=== PATIENT | female | born 1940 | race Caucasian/White ===

== ENCOUNTER 2019-03-13 01:00 | Inpatient (IN) | payer MEDICARE, MEDICAID ==
[~2019-03-13] VITALS: Ht 175.3 cm; Wt 67.8 kg
[2019-03-13] VITALS (7 sets, daily range): BP systolic 97–116; BP diastolic 49–63
[~2019-03-13 01:00] MED LIST: COLACE50 MG ORAL; PERCOCET 5-3251 EACH ORAL; TRAMADOL HCL50 MG ORAL; VALIUM2 MG ORAL
--- NOTE | 2019-03-13 01:03 | NUR ---
ED Nurse Note: pt presents to ED via EMS arrival RA 861 c/o L knee pain after she sustained a GLF at 1430. pt reports that she hit her head and has a bruise on her R cheek but denies LOC. per EMS she took an oxycodone DIRECTOR OF REIMBURSEMENT without relief of symptoms. pt rates the pain a 10/10 that radiatesup her L thigh and down the R lwoer leg. pt denies vomiting but does c/o nausea.
[2019-03-13] MEDS ORDERED: Tetanus/Diptheria/Pertussis IM ONE (01:15)
[2019-03-13] MEDS ORDERED: Morphine Sulfate 2mg/ml Inj(IV/IM USE ONLY) IM ONE (01:15)
--- NOTE | 2019-03-13 01:18 | Emergency Room Report ---
History of Present Illness General Chief Complaint: Multiple Trauma/Fall Source: Patient Present Illness HPI Disclaimer: Please note that this report is being documented using DRAGON technology. This can lead to erroneous entry secondary to incorrect interpretation by the dictating instrument. HPI: 79-year-old female with a history of temporal arteritis and osteoarthritis presents for evaluation of left knee pain and swelling. The patient had a fall from standing today approximately 2:30 PM. She fell forward onto her right knee and struck the right cheek against the ground as well. There was no loss of consciousness, no seizure-like activity and she does not take anticoagulants. She was helped home by juan carlos Butt'edwin. Noted worsening pain and swelling in the left knee. She was taking [place] which she has for chronic back pain without significant improvement. She is unable to ambulate. Typically gets around with a walker. Has a history of left hip replacement but no history of surgical repair in the left knee. She did dislocate the left kneecap while in boarding school. PMH: Osteoarthritis, temporal arteritis PSH: Left hip replacement, appendectomy Allergies: Denies Social Hx: Occasional alcohol use, occasional CBD use, denies other drug use or tobacco use Allergies: Coded Allergies: No Known Allergies (Unverified , 06/03/13) Patient History Last Menstrual Period: n/a Nursing Documentation-PM Past Medical History: No History, Except For Review of Systems All Other Systems: negative except mentioned in HPI Physical Exam Vital Signs Date Time Temp Pulse Resp B/P (MAP) Pulse Ox O2 Delivery O2 Flow Rate FiO2 03/13/19 00:57 97.9 70 18 99/56 (70) 98 Room Air General: Awake and alert, no acute distress HEENT: Normocephalic, atraumatic. Small hematoma of the right maxilla. No infraorbital anesthesia. EOMI. PERRLA. No septal hematoma. No oral lacerations. Dentition is intact. No malocclusion Neck: Supple, trachea midline. Arrives without cervical collar Chest Wall: No tenderness, no deformity, no crepitus CV: RRR. S1 and S2 normal. No murmur appreciated Resp: Normal work of breathing. No cough, wheezing or crackles appreciated Abd: Soft, nontender, nondistended Skin: Intact. No abrasions, laceration or rash over the exposed skin MSK: Significant hematoma and edema around the left knee that is tender to palpation. Patella appears in anatomic position. Severe pain with passive and active flexion and extension of the left knee. No overlying skin breakdown. Right knee is anatomic, nontender. Neuro: Awake and alert. Mentating appropriately. Sensation is intact to light touch over the dermatomes of the upper and lower extremities. Distal pulses are 2+. Capillary refill less than 2 seconds. Extremities are warm. Spine: There is no tenderness, step-off or deformity in the cervical, thoracic or lumbosacral spine. Medical Decision Making Diagnostic Impression: Primary Impression: Patellar fracture Additional Impression: Falls ER Course This is a 79-year-old female who presents after a fall from standing earlier today complaining of worsening pain and swelling of the left knee as well as a small hematoma over the right maxilla. There is no loss of consciousness however the patient does have tenderness over the facial bones concerning for possible fracture. Will obtain a CT scan of the head and facial bones as well as x-ray of the left knee to rule out fracture dislocation. She has preserved distal pulses and good capillary refill there is a significant effusion. She will be given pain medication. Laboratory Tests Test 03/13/19 02:14 White Blood Count 7.9 K/UL (4.8-10.8) Red Blood Count 3.66 M/UL (4.20-5.40) L Hemoglobin 11.5 G/DL (12.0-16.0) L Hematocrit 33.2 % (37.0-47.0) L Mean Corpuscular Volume 91 FL (80-99) Mean Corpuscular Hemoglobin 31.4 PG (27.0-31.0) H Mean Corpuscular Hemoglobin Concent 34.7 G/DL (32.0-36.0) Red Cell Distribution Width 11.5 % (11.6-14.8) L Platelet Count 201 K/UL (150-450) Mean Platelet Volume 5.3 FL (6.5-10.1) L Neutrophils (%) (Auto) 77.0 % (45.0-75.0) H Lymphocytes (%) (Auto) 10.9 % (20.0-45.0) L Monocytes (%) (Auto) 9.5 % (1.0-10.0) Eosinophils (%) (Auto) 1.7 % (0.0-3.0) Basophils (%) (Auto) 0.8 % (0.0-2.0) Sodium Level 135 MMOL/L (136-145) L Potassium Level 3.9 MMOL/L (3.5-5.1) Chloride Level 102 MMOL/L (98-107) Carbon Dioxide Level 29 MMOL/L (21-32) Anion Gap 4 mmol/L (5-15) L Blood Urea Nitrogen 9 mg/dL (7-18) Creatinine 0.6 MG/DL (0.55-1.30) Estimate Glomerular Filtration Rate mL/min (>60) Glucose Level 104 MG/DL (74-106) Calcium Level 8.7 MG/DL (8.5-10.1) Other X-Ray Diagnostic Results Other X-Ray Diagnostic Results : X-Ray ordered: Left knee # of Views/Limited Vs Complete: Complete Indication: Swelling EP Interpretation: Yes Interpretation: other - Comminuted fracture of the patella with moderate soft tissue swelling Impression: Other - Acute patellar fracture and soft tissue swelling Electronically Signed by: Electronically signed by Dr. Devonte Valentin Reevaluation Time: 04:00 Last Vital Signs Date Time Temp Pulse Resp B/P (MAP) Pulse Ox O2 Delivery O2 Flow Rate FiO2 03/13/19 01:07 70 18 Room Air 03/13/19 01:07 97.9 99/56 98 Reevaluation Impression X-ray confirms a patellar fracture that is comminuted but not significantly displaced. The patient cannot ambulate and cannot be safely discharged home in an immobilizer because cannot ambulate, she has multiple steps to get up to her home, lives independently and her daughter states that she is concerned over frequent falls. Daughter is concerned that she may be prescribed too much pain medication causing her recurrent falls. Believes there may be a polypharmacy component to her fall today and would like the patient admitted for reevaluation. She believes it is unsafe to send the patient home at this time to which I agree. She will require orthopedic evaluation while in-house. Patient was placed in a knee immobilizer, provided with pain medication. Screening labs have returned largely unremarkable. Will be admitted to panel service on the med/surge floor Disposition: ADMITTED INPATIENT Condition: Serious Devonte Valentin MD Mar 13, 2019 01:18
--- NOTE | 2019-03-13 02:00 | NUR ---
ED Nurse Note: R knee immobolizer applied by cardiac catheterization technologist
[2019-03-13] MEDS ORDERED: Morphine Sulfate 4mg/ml Inj (IV USE ONLY) IVP ONE (02:30)
--- NOTE | 2019-03-13 02:30 | NUR ---
ED Nurse Note: pt's daughter's number: [phone] Nimesh
[2019-03-13 02:32] LABS: BASOPHILS % (AUTO) 0.8 % (0.0-2.0); EOSINOPHILS % (AUTO) 1.7 % (0.0-3.0); HEMATOCRIT 33.2 % (37.0-47.0); HEMOGLOBIN 11.5 G/DL (12.0-16.0); LYMPHOCYTES % (AUTO) 10.9 % (20.0-45.0); MEAN CORPUSCULAR VOLUME 91 FL (80-99); MONOCYTES % (AUTO) 9.5 % (1.0-10.0); PLATELET COUNT 201 K/UL (150-450); RED BLOOD COUNT 3.66 M/UL (4.20-5.40); RED CELL DISTRIBUTION WIDTH 11.5 % (11.6-14.8); WHITE BLOOD COUNT 7.9 K/UL (4.8-10.8)
--- NOTE | 2019-03-13 02:40 | NUR ---
ED Nurse Note: pt transported to CT via gurney in NAD
[2019-03-13 02:41] LABS: ANION GAP 4 mmol/L (5-15); BLOOD UREA NITROGEN 9 mg/dL (7-18); CALCIUM 8.7 MG/DL (8.5-10.1); CARBON DIOXIDE 29 MMOL/L (21-32); CHLORIDE 102 MMOL/L (98-107); CREATININE 0.6 MG/DL (0.55-1.30); POTASSIUM 3.9 MMOL/L (3.5-5.1); SODIUM 135 MMOL/L (136-145)
--- NOTE | 2019-03-13 02:53 | NUR ---
ED Nurse Note: pt has returned from CT, states her pain is improved. will continue to monitor
--- NOTE | 2019-03-13 03:59 | Diagnostic Imaging Report ---
Indications: Bruising on face, status post fall one day ago Technique: Spiral images obtained through the facial bones. No IV contrast utilized. Multiplanar reconstructions were generated.Total dose length product 520 mGycm. CTDIvol(s) 24 mGy. Dose reduction achieved using automated exposure control Comparison: none Findings: There is minimal contusion in the right malar region demonstrated. No underlying fracture demonstrated. No worrisome sinus air-fluid levels. There is a polyp versus mucous retention cyst in the left maxillary sinus floor. There is evidence of prior bilateral cataract surgery. The optic globes are intact otherwise. The retroseptal orbits are intact. The remainder of the facial soft tissues are unremarkable. Impression: Evidence of right malar region contusion No acute bony trauma Left maxillary sinus polyp or mucous retention cyst This agrees with the preliminary interpretation provided overnight by [facility] teleradiology service. The CT scanner at [facility] is accredited by the [employer] and the scans are performed using protocols designed to limit radiation exposure to as low as reasonably achievable to attain images of sufficient resolution adequate for diagnostic evaluation.
[2019-03-13] MEDS ORDERED: HYDROmorphone 1mg/ml Carpuject SUBQ PRN ×2 (04:15→06:30)
[2019-03-13] MEDS ORDERED: Morphine Sulfate 4mg/ml Inj (IV USE ONLY) IVP PRN (04:15)
--- NOTE | 2019-03-13 04:37 | Diagnostic Imaging Report ---
Indications: Fell while walking one day ago, bruising on face Technique: Spiral acquisitions obtained through the brain. Angled axial and coronal 5 x 5 mm slices were reconstructed. Total dose length product 1831 mGycm. CTDI vol(s) 74 mGy. Dose reduction achieved using automated exposure control Comparison: None. Findings: No acute adrenal hemorrhage or edema. No mass effect nor midline shift. There is age-related enlargement of the ventricles and extra axial CSF spaces. There is mild periventricular deep white matter low-attenuation, consistent with chronic microvascular ischemic change. Intact calvarium. Visualized orbits are unremarkable. There is left maxillary sinus polyp versus mucosal thickening. Impression: Negative for acute intracranial bleed or mass effect Sinus disease Chronic and age-related changes, as described This agrees with the preliminary interpretation provided overnight by [facility] teleradiology service. The CT scanner at [facility] is accredited by the [employer] and the scans are performed using protocols designed to limit radiation exposure to as low as reasonably achievable to attain images of sufficient resolution adequate for diagnostic evaluation.
--- NOTE | 2019-03-13 04:45 | NUR ---
TRANSFER TO FLOOR: Patient transferred to as ordered, per JAMES Valentin. Report given to . Belongings sent with pt. daughter's contact information is in pt chart
--- NOTE | 2019-03-13 05:30 | NUR ---
NURSE NOTES: Received patient report from Tanja, emergency room RN. Patient is alert and oriented c/o pain 01/31. She requests IV morph Addendum: 03/13/19 at 0630 by Reyes Benedict RN She requests IV morphine. Her left leg is immobilized. Right hand IV is intact and asymptomatic. No SOB on room air. Walker and bedpan at bedside. Bed in low and locked position, call light within reach. Will continue to monitor.
--- NOTE | 2019-03-13 07:32 | NUR ---
NURSE NOTES: Patient is in bed asleep. Stable. Breathing is even and unlabored. No visible signs of distress noted at this time. Patient is in bed in locked and lowest position with call light within reach. All safety measures provided. Will continue to monitor.
--- NOTE | 2019-03-13 07:57 | NUR ---
NURSE NOTES: Paged Dr. Borrego regarding patient's admission orders. Awaiting response. Patient is stable.
--- NOTE | 2019-03-13 08:19 | NUR ---
HAND-OFF: Report given to REBECCA Ellis. Patient given pain medication per eMAR for left knee pain 01/31. Patient in stable condition and resting in bed.
--- NOTE | 2019-03-13 08:59 | Consultation ---
History of Present Illness General Date patient seen: Mar 13, 2019 Time patient seen: 08:30 - am Chief Complaint: Left knee pain Referring physician: Elmo Reason for Consultation: Pain Management Present Illness HPI This is [id number] female c/o left knee pain and swelling. The patient had a fall from standing today approximately 2:30 PM. She fell forward onto her left knee and struck the ground. Since the has been having severe pain in her left knee with walking as well as c/o right foot swelling and pain. The pain is a 10/. Xray performed found to have patella fracture. States she take Percocet 5/325mg or Ultram at home. We were consulted so patient has adequate pain control while here in the hospital. Allergies: Coded Allergies: No Known Allergies (Unverified , 06/03/13) Medication History Scheduled Docusate Sodium (Colace), 50 MG ORAL TWICE A DAY Scheduled PRN Diazepam* (Valium*), 2 MG ORAL TID PRN for Pain Scale (6-10) Oxycodone/Acetaminophen 5-325* (Percocet 5-325 Mg Tablet*), 1 TAB ORAL Q6H PRN for For Pain Tramadol Hcl* (Ultram*), 50 MG ORAL Q6H PRN for For Pain Patient History Healthcare decision maker Resuscitation status Full Code Advanced Directive on File Patient History Narrative PMH: Osteoarthritis, temporal arteritis PSH: Left hip replacement, appendectomy Social Hx: Occasional alcohol use, occasional CBD use, denies other drug use or tobacco use Review of Systems Constitutional: Reports: weakness Eye: Reports: no symptoms ENT: Reports: no symptoms Respiratory: Reports: no symptoms Cardiovascular: Reports: no symptoms Gastrointestinal: Reports: no symptoms Genitourinary: Reports: no symptoms Musculoskeletal: Reports: joint pain Skin: Reports: no symptoms Psychiatric: Reports: no symptoms Neurological: Reports: no symptoms Endocrine: Reports: no symptoms Hematologic/Lymphatic: Reports: no symptoms Physical Exam General Appearance: no apparent distress, alert Neck: non-tender, supple Respiratory/Chest: lungs clear, normal breath sounds Abdomen: non tender, soft Extremities: other - Left knee swelling tenderness to palaption, Right foot swelling Skin Exam: normal pigmentation Neurologic: alert, oriented x 3 Physical Exam Narrative Procedure: XRAY Knee 3v LT Indication: Pain, trauma, pain in left knee after falling Technique: 3 views of the left knee Comparison: None Findings: There is an obliquely oriented fracture of the patella. This is distracted by about 3 mm but otherwise nondisplaced. There is overlying soft tissue swelling. There is a small effusion. No other acute fractures. No dislocations. There is mild degenerative joint space narrowing of the medial and lateral compartments. There is medial and lateral meniscal chondrocalcinosis. The bones are osteoporotic. Impression: Positive for patellar fracture Last 24 Hour Vital Signs Date Time Temp Pulse Resp B/P (MAP) Pulse Ox O2 Delivery O2 Flow Rate FiO2 03/13/19 08:00 98.0 75 17 102/49 (66) 93 03/13/19 07:56 Room Air 03/13/19 06:00 98.1 71 17 102/52 (69) 93 03/13/19 04:55 97.9 82 16 97/59 99 Room Air 03/13/19 04:18 97.9 16 97/59 99 Room Air 03/13/19 03:00 97.9 03/13/19 03:00 97.9 03/13/19 01:07 70 18 Room Air 03/13/19 01:07 97.9 18 99/56 98 Room Air 03/13/19 00:57 97.9 70 18 99/56 (70) 98 Room Air Laboratory Tests Test 03/13/19 02:14 White Blood Count 7.9 K/UL (4.8-10.8) Red Blood Count 3.66 M/UL (4.20-5.40) L Hemoglobin 11.5 G/DL (12.0-16.0) L Hematocrit 33.2 % (37.0-47.0) L Mean Corpuscular Volume 91 FL (80-99) Mean Corpuscular Hemoglobin 31.4 PG (27.0-31.0) H Mean Corpuscular Hemoglobin Concent 34.7 G/DL (32.0-36.0) Red Cell Distribution Width 11.5 % (11.6-14.8) L Platelet Count 201 K/UL (150-450) Mean Platelet Volume 5.3 FL (6.5-10.1) L Neutrophils (%) (Auto) 77.0 % (45.0-75.0) H Lymphocytes (%) (Auto) 10.9 % (20.0-45.0) L Monocytes (%) (Auto) 9.5 % (1.0-10.0) Eosinophils (%) (Auto) 1.7 % (0.0-3.0) Basophils (%) (Auto) 0.8 % (0.0-2.0) Sodium Level 135 MMOL/L (136-145) L Potassium Level 3.9 MMOL/L (3.5-5.1) Chloride Level 102 MMOL/L (98-107) Carbon Dioxide Level 29 MMOL/L (21-32) Anion Gap 4 mmol/L (5-15) L Blood Urea Nitrogen 9 mg/dL (7-18) Creatinine 0.6 MG/DL (0.55-1.30) Estimat Glomerular Filtration Rate mL/min (>60) Glucose Level 104 MG/DL (74-106) Calcium Level 8.7 MG/DL (8.5-10.1) Height (Feet): 5 Height (Inches): 9.00 Weight (Pounds): 150 Medications Current Medications Medications (Trade) Dose Ordered Sig/Kami Route PRN Reason Start Time Stop Time Status Last Admin Dose Admin Dextrose/Sodium Chloride 1,000 ml @ 50 mls/hr Q20H IV 03/13/19 08:45 04/12/19 08:44 Docusate Sodium (Colace) 100 mg THREE TIMES A DAY ORAL 03/13/19 09:00 04/12/19 08:59 Pantoprazole (Protonix) 40 mg EVERY 12 HOURS ORAL 03/13/19 09:00 04/12/19 08:59 Assessment/Plan Assessment/Plan: (1) Left knee pain (2) Left Patella fracture s/p fall (3) Right foot pain r/o fracture Patient will be started on norco 5/325mg PO 1 tab Q4H PRN severe and Lidoderm patch Q12H on Q12H off on left knee Will order Xray of right foot Recommend Ortho consult as per deli bakery clerk D/w Dr. Ring and he concurred. Caleb Gayle Mar 13, 2019 08:59
[2019-03-13] MEDS: D5NS 1,000 ML IV SCH (09:01)
[2019-03-13] MEDS: Docusate 100mg cap ORAL SCH ×3 (09:01→17:16)
--- NOTE | 2019-03-13 09:56 | Diagnostic Imaging Report ---
Indication: Foot pain Technique: 3 views right foot Comparison: none Findings: Bones are osteoporotic. No definite acute fractures. No dislocations. The joint spaces are preserved. No definite osteolytic lesions. There is pes cavus deformity. There is hammertoe deformity of the second through fifth digits. Impression: No definite acute bony trauma. No definite plain radiographic evidence of osteomyelitis. However, note limited sensitivity of plain radiographs for such
--- NOTE | 2019-03-13 10:43 | NUR ---
RADIOLOGY DEPT., RIGHT FOOT X-RAY COMPLETED.-PKathieDYE
--- NOTE | 2019-03-13 10:48 | NUR ---
NURSE NOTES: Patient to be seen by Dr. Gates. Will assess patient for dvt ppx orders.
--- NOTE | 2019-03-13 11:23 | Consultation ---
Consult Note Consult Note asked to eval for electrolyte imbalance / Anemia HPI: 79-year-old female with a history of temporal arteritis and osteoarthritis presents for evaluation of left knee pain and swelling. The patient had a fall from standing today approximately 2:30 PM. She fell forward onto her right knee and struck the right cheek against the ground as well. There was no loss of consciousness, no seizure-like activity and she does not take anticoagulants. She was helped home by juan carlos Butt's. Noted worsening pain and swelling in the left knee. She was taking [place] which she has for chronic back pain without significant improvement. She is unable to ambulate. Typically gets around with a walker. Has a history of left hip replacement but no history of surgical repair in the left knee. She did dislocate the left kneecap while in boarding school. PMH: Osteoarthritis, temporal arteritis PSH: Left hip replacement, appendectomy Allergies: Denies Social Hx: Occasional alcohol use, occasional CBD use, denies other drug use or tobacco use No Known Allergies (Unverified , 06/03/13) Assessment/Plan HypoKalemia HypoNatremia Fall Fx patella CBD and ETOH use Temporal arteritis Hydrate Ortho eval Urine studies ESR Anemia bar per orders Anthony Rivera MD Mar 13, 2019 11:23
--- NOTE | 2019-03-13 12:15 | NUR ---
NURSE NOTES: Attempted to insert F/C, unsuccessful. Strict sterile technique observed. Patient refused another attempt of insertion. Patient assisted onto bedside commode without incident. All safety measures provided.
--- NOTE | 2019-03-13 12:30 | NUR ---
NURSE NOTES: Patient was able to void into bedside commode. Urine is shelbi. Patient complained of some discomfort r/t previous slade insertion attempt. Patient assisted back into bed with 2 person assist without incident. Patient is in bed in locked and lowest position with call light within reach. Will continue to monitor.
[2019-03-13 12:54] LABS: APPEARANCE,URINE SLIGHTLY CLOUDY; BILIRUBIN, URINE NEGATIVE (NEGATIVE); GLUCOSE, URINE (UA) NEGATIVE (NEGATIVE); KETONES,URINE NEGATIVE (NEGATIVE); LEUKOCYTE ESTERASE ,URINE 3+ (NEGATIVE); NITRITE,URINE POSITIVE (NEGATIVE); PH,URINE 7 (4.5-8.0); PROTEIN,URINE 1+ (NEGATIVE); UROBILINOGEN,URINE NORMAL MG/DL (0.0-1.0)
[2019-03-13 12:55] LABS: COLOR,URINE YELLOW
--- NOTE | 2019-03-13 13:08 | NUR ---
NURSE NOTES: Urine drug screen results reported to Dr. Borrego.
[2019-03-13] MEDS: HYDROcodone/Acetamin 5/325 tab ORAL PRN ×2 (13:20→17:17)
--- NOTE | 2019-03-13 13:30 | NUR ---
NURSE NOTES: UA results reported to Dr. Rivera. Awaiting new orders.
--- NOTE | 2019-03-13 14:37 | NUR ---
CASE MANAGEMENT:REVIEW 79 YR OLD FEMALE BIBA FROM HOME CC: GROUND LEVEL FALL NOW WITH LT KNEE PAIN SI: PATELLA FRACTURE. FALLS 97.8 70 18 99/56 98% ON RA IS: TdP IM IV MORPHINE X3 CT HEAD AND FACIAL BONES XRAY LT KNEE : TO MED/SURG 3 EAST INTERQUAL CRITERIA MET
--- NOTE | 2019-03-13 14:56 | Diagnostic Imaging Report ---
Indication: Pain, trauma, pain in left knee after falling Technique: 3 views of the left knee Comparison: None Findings: There is an obliquely oriented fracture of the patella. This is distracted by about 3 mm but otherwise nondisplaced. There is overlying soft tissue swelling. There is a small effusion. No other acute fractures. No dislocations. There is mild degenerative joint space narrowing of the medial and lateral compartments. There is medial and lateral meniscal chondrocalcinosis. The bones are osteoporotic. Impression: Positive for patellar fracture This agrees with the preliminary interpretation reported by the emergency room physician in the electronic medical record
--- NOTE | 2019-03-13 19:30 | NUR ---
NURSE NOTES: Received report from REBECCA Ellis. Patient is resting in bed with left knee immobilizer on. Lidocaine patch is on the patellar region. She is alert and oriented x4. Patient c/o pain 10/10, medication given per eMAR. Left hand IV running fluids at 50cc/hr. Bed in low and locked position. Patient instructed to use call light if they require assistance.
--- NOTE | 2019-03-13 19:30 | NUR ---
HAND-OFF: Report given to Reyes FERNANDEZ. Patient is stable.
[2019-03-13] MEDS: HYDROcodone/Acetamin 10/325 tab ORAL PRN (20:08)
[2019-03-13] MEDS: Heparin 5000 units/ml inj SUBQ SCH (20:09)
--- NOTE | 2019-03-13 22:00 | Consultation ---
DATE OF CONSULTATION: 03/13/2019 CONSULTING PHYSICIAN: Celi Early M.D. HISTORY OF PRESENT ILLNESS: The patient is a 79-year-old female with a history of multiple medical comorbidities who has been admitted to the hospital for medical stabilization. The patient has history of depression and anxiety. She is taking pain medication, benzodiazepines, and Seroquel. The patient's urine toxicology was positive for cannabis as well as for benzodiazepines, opiate pain medication. During the evaluation, the patient is anxious. Complaining of insomnia and stated that she has to take Seroquel and Restoril every night. The patient is denying any depressive symptoms. The patient also stated that she is using CBD oil. The patient is not endorsing any psychotic or manic symptoms. She was cooperative. PAST PSYCHIATRIC HISTORY: Depression, anxiety. She denied any suicide attempt. Denied psychiatric hospitalization. She has a therapist. She has been taking Seroquel and Restoril for several years. PAST MEDICAL HISTORY: Significant for chronic pain, arthritis. ALLERGIES: No known drug allergies. SUBSTANCE ABUSE HISTORY: No known history of illicit drug use or alcohol. She uses CBD oil at times. MENTAL STATUS EXAMINATION: The patient is alert, oriented times self, place, and situation. Pleasant and cooperative. Mood is anxious. Affect is full range, congruent with mood. Thought process was linear and goal oriented. Thought content, no suicidal or homicidal ideation. Cognition is intact. Insight and judgment is fair. ASSESSMENT: Sumpter I Major depressive disorder. Anxiety disorder. Rule out substance use disorder. Sumpter II Deferred. Sumpter III As above. Sumpter IV Low. Sumpter V 50. PLAN: 1. The patient will be started on Seroquel 25 mg at bedtime. 2. Restoril 15 at bedtime. 3. Provide the patient with reality orientation and supportive therapy. Celi Early M.D. DR: ALEXIS JOB#: [id number] CC: NAZ
[2019-03-14] VITALS: BP 133/64
[2019-03-14] MEDS: HYDROcodone/Acetamin 10/325 tab ORAL PRN ×5 (02:26→21:11)
[2019-03-14] MEDS: D5NS 1,000 ML IV SCH (02:28)
--- NOTE | 2019-03-14 03:15 | Consultation ---
DATE OF CONSULTATION: 03/13/2019 ORTHOPEDIC CONSULTATION CONSULTING PHYSICIAN: Bo Gates M.D. REFERRING PHYSICIAN: Kacy Borrego M.D. CHIEF COMPLAINT: Left knee pain. HISTORY OF PRESENT ILLNESS: The patient is a pleasant 79-year-old female who fell and diagnosed with left patella fracture. She was admitted for pain management. Orthopedic consultation was obtained for further care and recommendation of left knee. PAST MEDICAL HISTORY: Reviewed from intake chart. PAST SURGICAL HISTORY: Reviewed from intake chart. MEDICATIONS: Reviewed from intake chart. PHYSICAL EXAMINATION: GENERAL: The patient is resting comfortably in bed. VITAL SIGNS: Afebrile. Stable vital signs. EXTREMITIES: examination shows no pain with internal and external rotation. Left knee examination shows the skin is intact. Moderate knee effusion. Pain with patellar grinding. Range of motion was not done. Posterior calf is soft. Neurovascular exam is normal. IMAGING STUDIES: Show a comminuted nondisplaced patella fracture. ASSESSMENT: Left comminuted nondisplaced patellar fracture. DISCUSSION: At this point, it is nondisplaced, therefore recommend discontinuing the knee immobilizer for a period of six weeks. She is to keep her leg straight. She cannot bend it. After 6 weeks, if the fracture is consolidated, then she can begin flexion-extension activities with her knee. As it relates to her followup, she can go to rehabilitation if she cannot care for herself or perform activities of living safely. If she does go to rehabilitation, she needs to get repeat study in 10 to 14 days to make sure that the fracture does not displace. If the fracture displaces, then she may require operative intervention in the future. At this point, if the fracture heals like it does then she should have functional recovery. In terms of DVT prophylaxis, I would recommend sequential compressions as well as heparin 5000 subcutaneous b.i.d. Signs and symptoms discussed with the patient. Bo Gates M.D. DR: MERCEDES JOB#: [id number] CC: Kacy Borrego M.D.; Fax#: [phone] [facility]
[2019-03-14 04:00] VITALS: BP 120/59
--- NOTE | 2019-03-14 05:00 | History and Physical Report ---
DATE OF ADMISSION: 03/13/2019 HISTORY OF PRESENT ILLNESS: The patient came in because she fell and fractured her left patella, cannot ambulate, unsafe for discharge, is admitted. The patient fell while walking her dog. It happened yesterday. The patient also has pain in the lower extremities, left more than the right. The patient has a prior history of left hip surgery. The patient does have pain in both legs. Denies nausea, vomiting, or diarrhea. No fever or chills. Denies shortness of breath. Denies cough. Denies chills. PAST MEDICAL HISTORY: Significant for constipation, anxiety, chronic pain syndrome, insomnia. MEDICATIONS: Seroquel, temazepam, Colace, and diazepam as needed. ALLERGIES: No known allergies. PAST SURGICAL HISTORY: Left knee surgery, appendectomy. SOCIAL HISTORY: History of smoking, history of drug abuse. Denies history of alcohol abuse. FAMILY HISTORY: Noncontributory. REVIEW OF SYSTEMS: HEENT: Denies headaches. RESPIRATORY: Denies shortness of breath. Denies cough. CARDIOVASCULAR: Denies chest pain. GI: Denies nausea, vomiting, or diarrhea. Does have pain in the lower extremities, especially left more than the right. CENTRAL NERVOUS SYSTEM: Denies change in vision or speech pattern. PHYSICAL EXAMINATION: VITAL SIGNS: Temperature is 98.1, pulse is 71, blood pressure is 102/52. HEENT: PERRLA. NECK: Supple. No lymphadenopathy. CHEST: Clear to auscultation. CARDIOVASCULAR: Regular rate and rhythm. No murmurs or extra sounds. GASTROINTESTINAL: Soft, nontender, and nondistended. No organomegaly. EXTREMITIES: No edema. Decreased range of motion in the left knee due to pain and otherwise reflexes on both sides. Able to move extremities, but has a problem with the left extremity due to pain. LABORATORY DATA: WBC of 7.9, hemoglobin of 11.5, and platelets of 201,000. Sodium 135, potassium 3.9, BUN of 9, creatinine of 0.6, and glucose of 104. ASSESSMENT AND PLAN: Patella fracture on the left. I have consulted Dr. Gates and Dr. Ring for pain management. For the patient's , I have consulted Dr. Early and Dr. Rivera for IV fluids if needed. Ali Eleno Borrego DR: JENNIFER JOB#: [id number] CC:
[2019-03-14 06:06] LABS: BASOPHILS % (AUTO) 0.8 % (0.0-2.0); EOSINOPHILS % (AUTO) 2.3 % (0.0-3.0); HEMATOCRIT 32.8 % (37.0-47.0); HEMOGLOBIN 11.3 G/DL (12.0-16.0); LYMPHOCYTES % (AUTO) 17.2 % (20.0-45.0); MEAN CORPUSCULAR VOLUME 92 FL (80-99); MONOCYTES % (AUTO) 11.6 % (1.0-10.0); NEUTROPHILS % (AUTO) 68.1 % (45.0-75.0); PLATELET COUNT 194 K/UL (150-450); RED BLOOD COUNT 3.57 M/UL (4.20-5.40); RED CELL DISTRIBUTION WIDTH 11.2 % (11.6-14.8)
[2019-03-14 06:34] LABS: ALANINE AMINOTRANSFERASE 17 U/L (12-78); ALBUMIN 2.9 G/DL (3.4-5.0); ALKALINE PHOSPHATASE 64 U/L (46-116); ANION GAP 1 mmol/L (5-15); ASPARTATE AMINO TRANSFERASE 18 U/L (15-37); BILIRUBIN,TOTAL 0.3 MG/DL (0.2-1.0); BLOOD UREA NITROGEN 6 mg/dL (7-18); CALCIUM 8.2 MG/DL (8.5-10.1); CARBON DIOXIDE 31 MMOL/L (21-32); CHLORIDE 106 MMOL/L (98-107); CHOLESTEROL 214 MG/DL (< 200); CREATININE 0.6 MG/DL (0.55-1.30); FERRITIN 95 NG/ML (8-388); HDL CHOLESTEROL 76 MG/DL (40-60); PHOSPHORUS 3.2 MG/DL (2.5-4.9); POTASSIUM 3.4 MMOL/L (3.5-5.1); SODIUM 138 MMOL/L (136-145); TRIGLYCERIDES 77 MG/DL (30-150)
[2019-03-14 07:24] LABS: % IRON SATURATION 12 % (15-50); IRON 28 ug/dL (50-175); TOTAL IRON BINDING CAPACITY 230 ug/dL (250-450)
--- NOTE | 2019-03-14 07:25 | NUR ---
HAND-OFF: Report given to REBECCA Ellis. Patient in stable condition.
--- NOTE | 2019-03-14 07:30 | NUR ---
NURSE NOTES: Patient is in bed awake and able to verbalize needs. Stable. Complains 10/10 pain, will administer pain medication as ordered. Patient encouraged to use call light for assistance, verbalized understanding. Left leg is immobilized. Patient is in bed in locked and lowest position with call light within reach. Will continue to monitor.
[2019-03-14 08:00] VITALS: BP 149/63
[2019-03-14] MEDS: Thiamine 100mg tab ORAL SCH (08:46)
[2019-03-14] MEDS: Docusate 100mg cap ORAL SCH ×3 (08:46→17:06)
[2019-03-14] MEDS: Heparin 5000 units/ml inj SUBQ SCH ×2 (08:47→20:32)
--- NOTE | 2019-03-14 09:13 | General Progress Note ---
Assessment/Plan Assessment/Plan: (1) Left knee pain (2) Left Patella fracture s/p fall (3) Right foot pain Patient will be continued on norco and Lidoderm patch D/w Dr. Ring and he concurred. Subjective Date patient seen: Mar 14, 2019 Time patient seen: 08:45 - am Constitutional: Reports: no symptoms HEENT: Reports: no symptoms Cardiovascular: Reports: no symptoms Respiratory: Reports: no symptoms Gastrointestinal/Abdominal: Reports: no symptoms Genitourinary: Reports: no symptoms Neurologic/Psychiatric: Reports: no symptoms Endocrine: Reports: no symptoms Hematologic/Lymphatic: Reports: no symptoms Allergies: Coded Allergies: No Known Allergies (Unverified , 06/03/13) Subjective Patient is in bed and showing no signs of pain or distress. She states that the pain is a 10/10 and using the [place] which was increased to 10mg. She was seen by Ortho who did not recommend surgery. No xray noted on right foot xray Objective Last 24 Hour Vital Signs Date Time Temp Pulse Resp B/P (MAP) Pulse Ox O2 Delivery O2 Flow Rate FiO2 03/14/19 04:00 98.4 64 16 120/59 (79) 93 03/14/19 00:00 98.0 66 18 133/64 (87) 93 03/13/19 21:00 Room Air 03/13/19 20:00 98.8 66 20 100/60 (73) 97 03/13/19 16:00 98.8 68 20 104/59 (74) 97 03/13/19 12:00 98.0 76 18 116/63 (80) 96 Intake and Output 03/13/19 03/14/19 19:00 07:00 Intake Total 240 ml 800 ml Output Total 500 ml Balance 240 ml 300 ml Intake Oral 240 ml 800 ml Output Urine Total 500 ml # Voids 1 1 Laboratory Tests 03/13/19 12:00: Urine Color Yellow, Urine Appearance Slightly cloudy, Urine pH 7, Urine Specific [place] 1.005, Urine Protein 1+H, Urine Glucose (UA) Negative, Urine Ketones Negative, Urine Blood 2+H, Urine Nitrite PositiveH, Urine Bilirubin Negative, Urine Urobilinogen Normal, Urine Leukocyte Esterase 3+H, Urine RBC 10- 15H, Urine WBC 20-30H, Urine Squamous Epithelial Cells ModerateH, Urine Bacteria ManyH, Urine Opiates Screen PositiveH, Urine Barbiturates Screen Negative, Phencyclidine (PCP) Screen Negative, Urine Amphetamines Screen Negative, Urine Benzodiazepines Screen PositiveH, Urine Cocaine Screen Negative , Urine Marijuana (THC) Screen PositiveH 03/14/19 04:50: White Blood Count 6.0, Red Blood Count 3.57L, Hemoglobin 11.3L, Hematocrit 32.8L , Mean Corpuscular Volume 92, Mean Corpuscular Hemoglobin 31.6H, Mean Corpuscular Hemoglobin Concent 34.5, Red Cell Distribution Width 11.2L, Platelet Count 194, Mean Platelet Volume 5.5L, Neutrophils (%) (Auto) 68.1, Lymphocytes (%) (Auto) 17.2L, Monocytes (%) (Auto) 11.6H, Eosinophils (%) (Auto ) 2.3, Basophils (%) (Auto) 0.8, Erythrocyte Sedimentation Rate 17, Sodium Level 138, Potassium Level 3.4L, Chloride Level 106, Carbon Dioxide Level 31, Anion Gap 1L, Blood Urea Nitrogen 6L, Creatinine 0.6, Estimat Glomerular Filtration Rate , Glucose Level 93, Uric Acid 3.6, Calcium Level 8.2L, Phosphorus Level 3.2, Magnesium Level 2.0, Iron Level 28L, Total Iron Binding Capacity 230L, Percent Iron Saturation 12L, Unsaturated Iron Binding 202, Ferritin 95, Total Bilirubin 0.3, Aspartate Amino Transf (AST/SGOT) 18, Alanine Aminotransferase (ALT/SGPT) 17, Alkaline Phosphatase 64, C-Reactive Protein, Quantitative 8.4H, Pro-B-Type Natriuretic Peptide 743H, Total Protein 5.9L, Albumin 2.9L, Globulin 3.0, Albumin/Globulin Ratio 1.0, Triglycerides Level 77, Cholesterol Level 214H, LDL Cholesterol 113H, HDL Cholesterol 76H, Cholesterol/ HDL Ratio 2.8L, Vitamin B12 Level 473, Folate 59.4H, Thyroid Stimulating Hormone (TSH) 1.005 Height (Feet): 5 Height (Inches): 9.00 Weight (Pounds): 149 General Appearance: no apparent distress, alert EENT: PERRL/EOMI, normal ENT inspection Neck: non-tender, normal alignment Cardiovascular: normal rate, regular rhythm Respiratory/Chest: lungs clear, normal breath sounds Abdomen: non tender, soft Extremities: other - left knee swelling and tenderness to palpation. Edema: no edema noted Generalized Neurologic: alert, oriented x 3 Skin: normal pigmentation Objective Procedure: XRAY Foot Complete R Indication: Foot pain Technique: 3 views right foot Comparison: none Findings: Bones are osteoporotic. No definite acute fractures. No dislocations. The joint spaces are preserved. No definite osteolytic lesions. There is pes cavus deformity. There is hammertoe deformity of the second through fifth digits. Impression: No definite acute bony trauma. Caleb Gayle Mar 14, 2019 09:13
[2019-03-14] MEDS ORDERED: HydrALAZINE 25mg tab ORAL PRN (09:30)
--- NOTE | 2019-03-14 09:30 | NUR ---
NURSE NOTES: IVF d/c as ordered.
[2019-03-14 12:00] VITALS: BP 125/108
--- NOTE | 2019-03-14 14:54 | Nephrology Progress Note ---
Assessment/Plan Problem List: (1) Patellar fracture (2) Electrolyte imbalance Assessment: Low K and Low Na Assessment HypoKalemia HypoNatremia Fall Fx patella CBD and ETOH use Temporal arteritis Plan PRN BP meds Hydrate as needed Ortho eval Urine studies evidence of drug abuse ESR: 17 unusual for Temporal Arthritis Anemia bar per orders Objective Objective Last 24 Hour Vital Signs Date Time Temp Pulse Resp B/P (MAP) Pulse Ox O2 Delivery O2 Flow Rate FiO2 03/14/19 12:00 98.0 81 14 125/108 (114) 95 03/14/19 09:00 Room Air 03/14/19 08:00 98.2 68 14 149/63 (91) 94 03/14/19 04:00 98.4 64 16 120/59 (79) 93 03/14/19 00:00 98.0 66 18 133/64 (87) 93 03/13/19 21:00 Room Air 03/13/19 20:00 98.8 66 20 100/60 (73) 97 03/13/19 16:00 98.8 68 20 104/59 (74) 97 Intake and Output 03/13/19 03/14/19 19:00 07:00 Intake Total 240 ml 800 ml Output Total 500 ml Balance 240 ml 300 ml Intake Oral 240 ml 800 ml Output Urine Total 500 ml # Voids 1 1 Laboratory Tests 03/14/19 04:50: White Blood Count 6.0, Red Blood Count 3.57L, Hemoglobin 11.3L, Hematocrit 32.8L , Mean Corpuscular Volume 92, Mean Corpuscular Hemoglobin 31.6H, Mean Corpuscular Hemoglobin Concent 34.5, Red Cell Distribution Width 11.2L, Platelet Count 194, Mean Platelet Volume 5.5L, Neutrophils (%) (Auto) 68.1, Lymphocytes (%) (Auto) 17.2L, Monocytes (%) (Auto) 11.6H, Eosinophils (%) (Auto ) 2.3, Basophils (%) (Auto) 0.8, Erythrocyte Sedimentation Rate 17, Sodium Level 138, Potassium Level 3.4L, Chloride Level 106, Carbon Dioxide Level 31, Anion Gap 1L, Blood Urea Nitrogen 6L, Creatinine 0.6, Estimat Glomerular Filtration Rate , Glucose Level 93, Uric Acid 3.6, Calcium Level 8.2L, Phosphorus Level 3.2, Magnesium Level 2.0, Iron Level 28L, Total Iron Binding Capacity 230L, Percent Iron Saturation 12L, Unsaturated Iron Binding 202, Ferritin 95, Total Bilirubin 0.3, Aspartate Amino Transf (AST/SGOT) 18, Alanine Aminotransferase (ALT/SGPT) 17, Alkaline Phosphatase 64, C-Reactive Protein, Quantitative 8.4H, Pro-B-Type Natriuretic Peptide 743H, Total Protein 5.9L, Albumin 2.9L, Globulin 3.0, Albumin/Globulin Ratio 1.0, Triglycerides Level 77, Cholesterol Level 214H, LDL Cholesterol 113H, HDL Cholesterol 76H, Cholesterol/ HDL Ratio 2.8L, Vitamin B12 Level 473, Folate 59.4H, Thyroid Stimulating Hormone (TSH) 1.005 Height (Feet): 5 Height (Inches): 9.00 Weight (Pounds): 149 Anthony Rivera MD Mar 14, 2019 14:54
[2019-03-14 16:00] VITALS: BP 136/66
[2019-03-14] MEDS: Calcium Carbonate 500mg w/Vit D 200iu tab ORAL SCH (17:06)
--- NOTE | 2019-03-14 17:30 | Consultation ---
DATE OF CONSULTATION: 03/14/2019 INFECTIOUS DISEASE CONSULTATION CONSULTING PHYSICIAN: Neto Hinojosa M.D. PRIMARY ATTENDING PHYSICIAN: Kacy Borrego M.D. REASON FOR CONSULT: Pyuria, UTI. HISTORY OF PRESENT ILLNESS: This is a 79-year-old white female admitted yesterday from home after a fall in the street. She was walking her dogs and fell down. After that, she had left knee pain and swelling. In the hospital, it was diagnosed as left patellar fracture. She has also off and on urinary problem. An attempt for placement of Gautam catheter was difficult for the patient and has some bleeding also. PAST MEDICAL HISTORY: Significant for chronic back pain, osteoarthritis, temporal arteritis, depression, anxiety, and osteoporosis. ALLERGIES: No known drug allergies. MEDICATIONS: Protonix, potassium chloride, hydralazine, thiamine, Seroquel, temazepam, [place], and Colace. SOCIAL HISTORY: . She does have a 7 children. Origin is from [place]. She has history of smoking cannabis abuse, but she quit it for a while. REVIEW OF SYSTEMS: No fever. No chills. No coughing. No shortness of breath. Has on and off difficulty of passing urine. Has pain in the left knee. PHYSICAL EXAMINATION: VITAL SIGNS: Temperature 98.2, pulse 68, blood pressure 149/63. GENERAL APPEARANCE: No acute distress. Seems to be thin. HEAD AND NECK: [place] conjunctivae. HEART: Normal rate. LUNGS: Clear. ABDOMEN: Soft, nontender. EXTREMITIES: Left knee swelling. NEUROLOGIC: Awake, alert, and oriented x3. LABORATORY AND DIAGNOSTIC DATA: WBC 6, hemoglobin 11.3, hematocrit 32.8, and platelets 194,000. Sodium 138, potassium 3.4, chloride 106, bicarb 31, BUN 6, and creatinine 0.6. Glucose 93. Knee x-ray showed patellar fracture in the left side. Head CT negative for intracranial bleeding or mass effect, sinus disease. Facial bone CT evidence of right molar region contusion. No acute bony problem, left maxillary sinus polyp or mucous retention cyst. UA showed wbc's of 20 to 30, rbc's of 10 to 15, leukocyte esterase 2+, nitrite positive. IMPRESSION: 1. Pyuria, with symptoms may have urinary tract infection. 2. Fall from standing position and left patellar fracture. 3. Osteoarthritis. 4. Osteoporosis. 5. Depression and anxiety. RECOMMENDATION: We will start with oral Bactrim. Restart calcium with vitamin D for osteoporosis. We will follow up the urine culture. At the end of my exam, I thank Dr. Borrego for involving me in the care of this patient. Neto Hinojosa M.D. DR: SANTA JOB#: [id number] CC: NAZ
--- NOTE | 2019-03-14 19:30 | NUR ---
HAND-OFF: Report given to Vandana FERNANDEZ. Patient is stable.
[2019-03-14 20:00] VITALS: BP 126/76
--- NOTE | 2019-03-14 20:00 | NUR ---
NURSE NOTES: received pt in bed. AAO x4 in room air. left knee immobilizer on. lidoderm patch is on the patellar region. call light within reach. bed is the lowest position and locked. will continue to provide plan of care.
[2019-03-14] MEDS: Bactrim-DS 1 tab ORAL SCH (20:32)
--- NOTE | 2019-03-14 21:00 | NUR ---
NURSE NOTES: received report from Rhonda FERNANDEZ. No IV access presented.
--- NOTE | 2019-03-14 21:00 | General Progress Note ---
Assessment/Plan Problem List: (1) Fall ICD Codes: W19.XXXA - Unspecified fall, initial encounter SNOMED: 1948677 (2) Multiple injuries due to trauma ICD Codes: T07.XXXA - Unspecified multiple injuries, initial encounter SNOMED: 696225165 (3) Falls ICD Codes: W19.XXXA - Unspecified fall, initial encounter SNOMED: 1815818, 861821784 (4) Patellar fracture ICD Codes: S82.009A - Unspecified fracture of unspecified patella, initial encounter for closed fracture SNOMED: 56626502 (5) Electrolyte imbalance ICD Codes: E87.8 - Other disorders of electrolyte and fluid balance, not elsewhere classified SNOMED: 660856033 Status: progressing Assessment/Plan: afebrile nac patellar fracture reviewed chart and labs Subjective ROS Limited/Unobtainable: Yes Allergies: Coded Allergies: No Known Allergies (Unverified , 06/03/13) Objective Last 24 Hour Vital Signs Date Time Temp Pulse Resp B/P (MAP) Pulse Ox O2 Delivery O2 Flow Rate FiO2 03/14/19 20:00 98.2 76 20 126/76 (93) 03/14/19 16:00 98.3 63 14 136/66 (89) 95 03/14/19 12:00 98.0 81 14 125/108 (114) 95 03/14/19 09:00 Room Air 03/14/19 08:00 98.2 68 14 149/63 (91) 94 03/14/19 04:00 98.4 64 16 120/59 (79) 93 03/14/19 00:00 98.0 66 18 133/64 (87) 93 03/13/19 21:00 Room Air Intake and Output 03/13/19 03/14/19 19:00 07:00 Intake Total 240 ml 800 ml Output Total 500 ml Balance 240 ml 300 ml Intake Oral 240 ml 800 ml Output Urine Total 500 ml # Voids 1 1 Laboratory Tests 03/14/19 04:50: White Blood Count 6.0, Red Blood Count 3.57L, Hemoglobin 11.3L, Hematocrit 32.8L , Mean Corpuscular Volume 92, Mean Corpuscular Hemoglobin 31.6H, Mean Corpuscular Hemoglobin Concent 34.5, Red Cell Distribution Width 11.2L, Platelet Count 194, Mean Platelet Volume 5.5L, Neutrophils (%) (Auto) 68.1, Lymphocytes (%) (Auto) 17.2L, Monocytes (%) (Auto) 11.6H, Eosinophils (%) (Auto ) 2.3, Basophils (%) (Auto) 0.8, Erythrocyte Sedimentation Rate 17, Sodium Level 138, Potassium Level 3.4L, Chloride Level 106, Carbon Dioxide Level 31, Anion Gap 1L, Blood Urea Nitrogen 6L, Creatinine 0.6, Estimat Glomerular Filtration Rate , Glucose Level 93, Uric Acid 3.6, Calcium Level 8.2L, Phosphorus Level 3.2, Magnesium Level 2.0, Iron Level 28L, Total Iron Binding Capacity 230L, Percent Iron Saturation 12L, Unsaturated Iron Binding 202, Ferritin 95, Total Bilirubin 0.3, Aspartate Amino Transf (AST/SGOT) 18, Alanine Aminotransferase (ALT/SGPT) 17, Alkaline Phosphatase 64, C-Reactive Protein, Quantitative 8.4H, Pro-B-Type Natriuretic Peptide 743H, Total Protein 5.9L, Albumin 2.9L, Globulin 3.0, Albumin/Globulin Ratio 1.0, Triglycerides Level 77, Cholesterol Level 214H, LDL Cholesterol 113H, HDL Cholesterol 76H, Cholesterol/ HDL Ratio 2.8L, Vitamin B12 Level 473, Folate 59.4H, Thyroid Stimulating Hormone (TSH) 1.005 Height (Feet): 5 Height (Inches): 9.00 Weight (Pounds): 149 Cardiovascular: normal rate Respiratory/Chest: lungs clear Abdomen: soft Kacy Borrego MD Mar 14, 2019 21:00
[2019-03-15] VITALS: BP 106/67
[2019-03-15 04:00] VITALS: BP 138/86
[2019-03-15] MEDS: HYDROcodone/Acetamin 10/325 tab ORAL PRN ×5 (04:05→21:26)
--- NOTE | 2019-03-15 04:45 | Progress Note ---
DATE: 03/14/2019 SUBJECTIVE: The patient continues to have anxiety. She was asking for more pain medication. The patient has more anxiety. She is currently only on Seroquel and temazepam. Pleasant and engaged. MENTAL STATUS EXAMINATION: The patient is alert, oriented times self, place, and situation. Mood is anxious. Affect is constricted, congruent with mood. Thought process is linear and goal oriented. Thought content, no suicidal or homicidal ideation. Cognition is intact. Insight and judgment is fair. ASSESSMENT: 1. Anxiety disorder. 2. Major depressive disorder. PLAN: 1. Continue the Seroquel. 2. Restoril. 3. Educated pain medication. Celi Early M.D. DR: ALEXIS JOB#: [id number] CC:
--- NOTE | 2019-03-15 05:45 | Progress Note ---
DATE: 03/14/2019 SUBJECTIVE: The patient is in moderate discomfort. She saw pain management earlier today. Overall, she had no other issues. OBJECTIVE: Examination shows knee immobilizer in place. Posterior calf is soft. NV normal. ASSESSMENT: Comminuted nondisplaced patellar fracture. DISCUSSION: At this point, I have spoken with the patient. that she needs to keep her knees straight. She is to continue wearing the knee immobilizer for 6 weeks and repeating studies in 10 to 14 days. They are going to work on discharge planning to possible [facility]. pain management for further recommendations and management of her pain. Bo Gatse M.D. DR: MERCEDES JOB#: [id number] CC: NAZ
--- NOTE | 2019-03-15 07:25 | NUR ---
CASE MANAGEMENT:REVIEW 03/15/19 SI: S/P FALL. PATELLA FRACTURE 98.1 82 18 138/86 97% ON RA IS: PROTONIX PO QD BACTRIM PO Q12 K-DUR PO QD THIAMINE PO QD SEROQUEL PO QHS RESTORIL PO QHS HEPARIN SQ Q12 NORCO 10/325 PO Q4HRS PRN LIDOCAINE PATCH QD : MED/SURG STATUS 3 EAST DCP: FROM HOME BUT MAY BENEFIT FROM SNF PLAN: NEEDS TO KEEP KNEE STRAIGHT KNEE IMMOBILIZER FOR 10-14 DAYS PAIN MGMT SNF PLACEMENT??/
--- NOTE | 2019-03-15 07:51 | NUR ---
HAND-OFF: Report given to CIARA Zaman RN.
--- NOTE | 2019-03-15 07:55 | NUR ---
NURSE NOTES: Received report from REBECCA Ross. Rounding done with outgoing nurse. Pt a/o x 3, in bed, having a breakfast. Denies any pain at this time. No IV access noted. Will insert another IV access. Pt agreed. Bed in lowest position, call light within reach. Will continue to monitor.
[2019-03-15 08:00] VITALS: BP 113/64
[2019-03-15] MEDS: Calcium Carbonate 500mg w/Vit D 200iu tab ORAL SCH ×2 (08:55→17:22)
[2019-03-15] MEDS: Bactrim-DS 1 tab ORAL SCH ×2 (08:55→20:13)
[2019-03-15] MEDS: Thiamine 100mg tab ORAL SCH (08:55)
[2019-03-15] MEDS: Docusate 100mg cap ORAL SCH ×3 (08:55→17:22)
[2019-03-15] MEDS: Heparin 5000 units/ml inj SUBQ SCH ×2 (08:57→20:13)
--- NOTE | 2019-03-15 09:12 | General Progress Note ---
Assessment/Plan Assessment/Plan: (1) Left knee pain (2) Left Patella fracture s/p fall (3) Right foot pain Patient will be continued on norco and Lidoderm patch D/w Dr. Ring and he concurred. Subjective Date patient seen: Mar 15, 2019 Time patient seen: 08:30 - am Constitutional: Reports: weakness HEENT: Reports: no symptoms Cardiovascular: Reports: no symptoms Respiratory: Reports: no symptoms Gastrointestinal/Abdominal: Reports: no symptoms Genitourinary: Reports: no symptoms Neurologic/Psychiatric: Reports: no symptoms Endocrine: Reports: no symptoms Hematologic/Lymphatic: Reports: no symptoms Allergies: Coded Allergies: No Known Allergies (Unverified , 06/03/13) Subjective Patient reports that she is doing well and better today. The pain has been reduced and tolerated on the [place]. Having 5 doses in the last 24hrs.No new complaints at this time. Objective Last 24 Hour Vital Signs Date Time Temp Pulse Resp B/P (MAP) Pulse Ox O2 Delivery O2 Flow Rate FiO2 03/15/19 08:00 97.7 80 18 113/64 (80) 95 03/15/19 04:00 98.1 82 18 138/86 (103) 97 03/15/19 00:00 98.4 80 18 106/67 (80) 98 03/14/19 21:24 Room Air 03/14/19 20:00 98.2 76 20 126/76 (93) 03/14/19 16:00 98.3 63 14 136/66 (89) 95 03/14/19 12:00 98.0 81 14 125/108 (114) 95 Intake and Output 03/14/19 03/15/19 19:00 07:00 Intake Total 800 ml 40 ml Balance 800 ml 40 ml Intake Oral 800 ml 40 ml # Voids 3 2 # Bowel Movements 1 Height (Feet): 5 Height (Inches): 9.00 Weight (Pounds): 149 General Appearance: no apparent distress, alert EENT: PERRL/EOMI Neck: non-tender, normal alignment Cardiovascular: normal rate, regular rhythm Respiratory/Chest: lungs clear, normal breath sounds Abdomen: non tender, soft Extremities: other - left knee tenderness and swelling noted Edema: no edema noted Generalized Neurologic: alert, oriented x 3 Skin: normal pigmentation Objective Procedure: XRAY Foot Complete R Indication: Foot pain Technique: 3 views right foot Comparison: none Findings: Bones are osteoporotic. No definite acute fractures. No dislocations. The joint spaces are preserved. No definite osteolytic lesions. There is pes cavus deformity. There is hammertoe deformity of the second through fifth digits. Impression: No definite acute bony trauma. Caleb Gayle Mar 15, 2019 09:12
[2019-03-15] MEDS ORDERED: D5NS 1000ml IV ONE (10:52)
[2019-03-15 12:00] VITALS: BP 133/67
--- NOTE | 2019-03-15 13:37 | Nephrology Progress Note ---
Assessment/Plan Problem List: (1) Patellar fracture (2) Electrolyte imbalance Assessment: Low K and Low Na (3) Drug abuse Assessment HypoKalemia HypoNatremia Fall Fx patella CBD and ETOH use Temporal arteritis Plan PRN BP meds Hydrate as needed Ortho eval Urine studies evidence of drug abuse ESR: 17 unusual for Temporal Arthritis Anemia bar per orders Subjective ROS Limited/Unobtainable: No Objective Objective Last 24 Hour Vital Signs Date Time Temp Pulse Resp B/P (MAP) Pulse Ox O2 Delivery O2 Flow Rate FiO2 03/15/19 12:00 98.4 64 18 133/67 (89) 95 03/15/19 09:00 Room Air 03/15/19 08:00 97.7 80 18 113/64 (80) 95 03/15/19 04:00 98.1 82 18 138/86 (103) 97 03/15/19 00:00 98.4 80 18 106/67 (80) 98 03/14/19 21:24 Room Air 03/14/19 20:00 98.2 76 20 126/76 (93) 03/14/19 16:00 98.3 63 14 136/66 (89) 95 Intake and Output 03/14/19 03/15/19 19:00 07:00 Intake Total 800 ml 40 ml Balance 800 ml 40 ml Intake Oral 800 ml 40 ml # Voids 3 2 # Bowel Movements 1 Height (Feet): 5 Height (Inches): 9.00 Weight (Pounds): 149 General Appearance: no apparent distress Objective no change Anthony Rivera MD Mar 15, 2019 13:37
[2019-03-15 16:00] VITALS: BP 130/58
--- NOTE | 2019-03-15 16:43 | Infectious Diseases Prog Note ---
Assessment/Plan Assessment/Plan IMPRESSION: 1. Pyuria, with symptoms may have urinary tract infection. 2. Fall from standing position and left patellar fracture. 3. Osteoarthritis. 4. Osteoporosis. 5. Depression and anxiety. RECOMMENDATION: Continue oral Bactrim Subjective ROS Limited/Unobtainable: No Constitutional: Denies: fever Respiratory: Reports: no symptoms Cardiovascular: Reports: no symptoms Gastrointestinal/Abdominal: Reports: no symptoms Genitourinary: Reports: no symptoms Musculoskeletal: Reports: pain, other - left knee Allergies: Coded Allergies: No Known Allergies (Unverified , 06/03/13) Objective Vital Signs Last 24 Hour Vital Signs Date Time Temp Pulse Resp B/P (MAP) Pulse Ox O2 Delivery O2 Flow Rate FiO2 03/15/19 16:00 98.3 64 18 130/58 (82) 95 03/15/19 12:00 98.4 64 18 133/67 (89) 95 03/15/19 09:00 Room Air 03/15/19 08:00 97.7 80 18 113/64 (80) 95 03/15/19 04:00 98.1 82 18 138/86 (103) 97 03/15/19 00:00 98.4 80 18 106/67 (80) 98 03/14/19 21:24 Room Air 03/14/19 20:00 98.2 76 20 126/76 (93) Height (Feet): 5 Height (Inches): 9.00 Weight (Pounds): 149 General Appearance: no acute distress HEENT: mucous membranes moist Respiratory/Chest: lungs clear Cardiovascular: normal rate Abdomen: soft, non tender Extremities: other - left knee effusion Skin: other - right face bruise Neurologic/Psychiatric: alert, oriented x 3, responsive Current Medications Medications (Trade) Dose Ordered Sig/Kami Route PRN Reason Start Time Stop Time Status Last Admin Dose Admin Acetaminophen/ Hydrocodone Bitart ([place] 10/325) 1 tab Q4H PRN ORAL For Pain 03/13/19 17:45 03/20/19 17:44 03/15/19 13:14 Calcium/Vitamin D (OsCal D) 1 tab BID ORAL 03/14/19 18:00 04/13/19 17:59 03/15/19 08:55 Docusate Sodium (Colace) 100 mg THREE TIMES A DAY ORAL 03/13/19 09:00 04/12/19 08:59 03/15/19 13:14 Escitalopram Oxalate (Lexapro) 10 mg DAILY ORAL 03/15/19 11:00 04/14/19 10:59 03/15/19 11:08 Heparin Sodium (Porcine) (Heparin 5000 units/ml) 5,000 units EVERY 12 HOURS SUBQ 03/13/19 21:00 04/12/19 20:59 03/15/19 08:57 Hydralazine HCl (Apresoline) 25 mg Q4H PRN ORAL bp over 160 syst 03/14/19 09:30 04/13/19 09:29 Lidocaine (Lidoderm 5% PATCH) 1 patch DAILY TDERMAL 03/13/19 09:15 04/12/19 09:14 03/15/19 08:56 Pantoprazole (Protonix) 40 mg DAILY ORAL 03/15/19 09:00 04/12/19 08:59 03/15/19 08:54 Potassium Chloride (K-Dur) 40 meq DAILY ORAL 03/14/19 09:30 04/13/19 09:29 03/15/19 08:55 Quetiapine Fumarate (SEROqueL) 25 mg BEDTIME ORAL 03/13/19 21:00 04/12/19 20:59 03/14/19 20:32 Temazepam (Restoril) 15 mg QHS ORAL 03/13/19 21:00 03/20/19 20:59 03/14/19 20:32 Thiamine HCl (Vitamin B1) 100 mg DAILY ORAL 03/14/19 09:00 04/13/19 08:59 03/15/19 08:55 Trimethoprim/ Sulfamethoxazole (Bactrim-DS) 1 tab Q12HR ORAL 03/14/19 21:00 03/21/19 20:59 03/15/19 08:55 Neto Hinojosa MD Mar 15, 2019 16:43
--- NOTE | 2019-03-15 18:30 | Progress Note ---
DATE: 03/15/2019 SUBJECTIVE: The patient is in bed, no acute distress noted. She continues to have anxiety, stated that she has been having anxiety for years. Pain is improved. We discussed about Lexapro to be added to her regimen. The patient agreed and would like to be taking the Lexapro for anxiety. MENTAL STATUS EXAMINATION: The patient is alert, oriented times self, place, and situation. Mood is anxious. Affect is constricted, congruent with mood. Thought process, linear and goal oriented. Thought content, no suicidal or homicidal ideation noted. Cognition is intact. Insight and judgment is fair. ASSESSMENT: Anxiety disorder. PLAN: 1. The patient will be continued on Lexapro. 2. Seroquel 25 mg at bedtime. 3. Ativan p.r.n. 4. We will continue to follow and readjust the medications. Celi Early M.D. DR: MCKINLEY JOB#: [id number] CC:
--- NOTE | 2019-03-15 19:15 | NUR ---
HAND-OFF: Report given to REBECCA Ross. Pt is in stable condition.
[2019-03-15 20:00] VITALS: BP 134/67
--- NOTE | 2019-03-15 20:00 | NUR ---
NURSE NOTES: received pt in bed. AAO X3 in room air. IV site on Left forearm intact and patent. no acute distress noted this time. call light within reach. bed is the lowest position and locked. will continue to provide plan of care.
--- NOTE | 2019-03-15 21:18 | General Progress Note ---
Assessment/Plan Problem List: (1) Fall ICD Codes: W19.XXXA - Unspecified fall, initial encounter SNOMED: 3253003 (2) Multiple injuries due to trauma ICD Codes: T07.XXXA - Unspecified multiple injuries, initial encounter SNOMED: 656852978 (3) Falls ICD Codes: W19.XXXA - Unspecified fall, initial encounter SNOMED: 2207983, 246590472 (4) Patellar fracture ICD Codes: S82.009A - Unspecified fracture of unspecified patella, initial encounter for closed fracture SNOMED: 33744607 (5) Electrolyte imbalance ICD Codes: E87.8 - Other disorders of electrolyte and fluid balance, not elsewhere classified SNOMED: 706205758 Status: progressing Assessment/Plan: needs snf for pt/ot patellar fracture reviewed chart and labs Subjective ROS Limited/Unobtainable: Yes Respiratory: Reports: no symptoms Gastrointestinal/Abdominal: Reports: no symptoms Allergies: Coded Allergies: No Known Allergies (Unverified , 06/03/13) Objective Last 24 Hour Vital Signs Date Time Temp Pulse Resp B/P (MAP) Pulse Ox O2 Delivery O2 Flow Rate FiO2 03/15/19 21:00 Room Air 03/15/19 20:00 98.7 74 20 134/67 (89) 96 03/15/19 16:00 98.3 64 18 130/58 (82) 95 03/15/19 12:00 98.4 64 18 133/67 (89) 95 03/15/19 09:00 Room Air 03/15/19 08:00 97.7 80 18 113/64 (80) 95 03/15/19 04:00 98.1 82 18 138/86 (103) 97 03/15/19 00:00 98.4 80 18 106/67 (80) 98 03/14/19 21:24 Room Air Intake and Output 03/14/19 03/15/19 19:00 07:00 Intake Total 800 ml 40 ml Balance 800 ml 40 ml Intake Oral 800 ml 40 ml # Voids 3 2 # Bowel Movements 1 Height (Feet): 5 Height (Inches): 9.00 Weight (Pounds): 149 Cardiovascular: normal rate Respiratory/Chest: lungs clear Abdomen: soft Kacy Borrego MD Mar 15, 2019 21:18
--- NOTE | 2019-03-15 22:32 | NUR ---
NURSE NOTES: Received report from Vandana Browning RN, patient is stable at this time, no acute distress noted, patient ambulates with staff assist, IV site is clean dry and intact, VSS, afebrile. Call light is within reach, bed is lowered, locked and alarm is on. Will continue to monitor for comfort and safety.
--- NOTE | 2019-03-15 22:38 | NUR ---
HAND-OFF: Report given to Nettie FERNANDEZ.
[2019-03-16 00:15] VITALS: BP 128/75
[2019-03-16] MEDS: HYDROcodone/Acetamin 10/325 tab ORAL PRN ×5 (02:49→21:28)
[2019-03-16 04:19] VITALS: BP 127/74
--- NOTE | 2019-03-16 07:25 | NUR ---
HAND-OFF: Report given to Neo FERNANDEZ.
--- NOTE | 2019-03-16 07:26 | NUR ---
NURSE NOTES: Received pt in bed, AAO x 4. Room air. No c/o of pain/distress at this moment. IV on L FA 22g intact and patent, with saline lock. Knee immobilizer noted. Commode t the bedside. Bed in the lowest, locked, and alarm on. Call light within reach
[2019-03-16 08:00] VITALS: BP 114/68
[2019-03-16] MEDS: Bactrim-DS 1 tab ORAL SCH ×2 (08:36→20:20)
[2019-03-16] MEDS: Calcium Carbonate 500mg w/Vit D 200iu tab ORAL SCH ×2 (08:36→17:10)
[2019-03-16] MEDS: Docusate 100mg cap ORAL SCH ×3 (08:36→17:10)
[2019-03-16] MEDS: Thiamine 100mg tab ORAL SCH (08:37)
[2019-03-16] MEDS: Heparin 5000 units/ml inj SUBQ SCH ×2 (08:38→20:20)
[2019-03-16 12:00] VITALS: BP 130/67
[2019-03-16] MEDS ORDERED: CALCIUM CARBON500 M1 PO (14:08)
[2019-03-16] MEDS ORDERED: COLACE100 MG ORAL (14:09)
[2019-03-16] MEDS ORDERED: LEXAPRO10 MG ORAL (14:10)
[2019-03-16] MEDS ORDERED: HYDRALAZINE HCL25 M2 PO (14:13)
[2019-03-16] MEDS ORDERED: NORCO 10/3251 EA ORAL (14:14)
[2019-03-16] MEDS ORDERED: LIDODERM700 M1 TOPIC (14:14)
[2019-03-16] MEDS ORDERED: PANTOPRAZOLE SO40 MG ORAL (14:15)
[2019-03-16] MEDS ORDERED: K-TAB10 MEQ PO (14:16)
[2019-03-16] MEDS ORDERED: CYTO B PO (14:18)
[2019-03-16] MEDS ORDERED: TEMAZEPAM15 MG ORAL (14:18)
[2019-03-16] MEDS ORDERED: QUETIAPINE FUMA25 MG ORAL (14:18)
[2019-03-16] MEDS ORDERED: BACTRIM-DS1 EA ORAL (14:19)
--- NOTE | 2019-03-16 15:32 | Nephrology Progress Note ---
Assessment/Plan Problem List: (1) Patellar fracture (2) Electrolyte imbalance Assessment: Low K and Low Na (3) Drug abuse Assessment HypoKalemia HypoNatremia Fall Fx patella CBD and ETOH use Temporal arteritis Plan PRN BP meds Hydrate as needed Ortho eval Urine studies evidence of drug abuse ESR: 17 unusual for Temporal Arthritis Anemia bar per orders Subjective ROS Limited/Unobtainable: No Constitutional: Reports: malaise Objective Objective Last 24 Hour Vital Signs Date Time Temp Pulse Resp B/P (MAP) Pulse Ox O2 Delivery O2 Flow Rate FiO2 03/16/19 12:00 98.8 75 15 130/67 (88) 96 03/16/19 09:00 Room Air 03/16/19 08:00 98.1 82 16 114/68 (83) 95 03/16/19 04:19 97.8 74 18 127/74 (91) 97 03/16/19 03:59 97.8 03/16/19 00:15 97.8 78 18 128/75 (92) 97 03/15/19 21:00 Room Air 03/15/19 20:00 98.7 74 20 134/67 (89) 96 03/15/19 16:00 98.3 64 18 130/58 (82) 95 Intake and Output 03/15/19 03/16/19 19:00 07:00 Intake Total 450 ml Balance 450 ml Intake Oral 450 ml # Voids 4 # Bowel Movements 1 Height (Feet): 5 Height (Inches): 9.00 Weight (Pounds): 149 General Appearance: no apparent distress Objective no change Anthony Rivera MD Mar 16, 2019 15:32
--- NOTE | 2019-03-16 15:51 | NUR ---
NURSE NOTES: RN called [facility] to give report, but according to Jose M at [facility], they do not have admitting nurse to take the patient today and they can take the patient tomorrow morning
[2019-03-16 16:00] VITALS: BP 120/70
--- NOTE | 2019-03-16 16:47 | NUR ---
NURSE NOTES: REBECCA Hernandez at [facility] refused to take report saying that patient cannot be admitted today.
--- NOTE | 2019-03-16 17:15 | NUR ---
NURSE NOTES: Spoke w/GARETT Allen, from [facility] and Dr. Borrego regarding pt being D/C'd tomorrow morning instead of today; Neo, primary RN, scheduled transportation for 03/17 at 0800. Will endorse to oncoming nurse.
--- NOTE | 2019-03-16 19:15 | NUR ---
NURSE NOTES: Received report from REBECCA Larson. States patient is to be discharged tomorrow at 0800. See phone number in notes to give report to Lovely. Rounds done, patient sitting up in bed. No distress noted.
--- NOTE | 2019-03-16 19:35 | NUR ---
HAND-OFF: Report given to REBECCA Dueñas.
--- NOTE | 2019-03-16 19:37 | NUR ---
NURSE NOTES: Endorsed PM RN to give report [facility]
[2019-03-16 20:00] VITALS: BP 150/77
--- NOTE | 2019-03-16 20:30 | NUR ---
NURSE NOTES: Patient alert, oriented x4. Sitting up in bed. L leg immobilizer on, R SCD on. Patient able to use BSC, encouraged to call for assistance to get OOB. Bed in low position, locked, side rails up x2, call light within reach. Will continue to monitor.
--- NOTE | 2019-03-16 22:43 | General Progress Note ---
Assessment/Plan Problem List: (1) Fall ICD Codes: W19.XXXA - Unspecified fall, initial encounter SNOMED: 3362094 (2) Multiple injuries due to trauma ICD Codes: T07.XXXA - Unspecified multiple injuries, initial encounter SNOMED: 355760856 (3) Falls ICD Codes: W19.XXXA - Unspecified fall, initial encounter SNOMED: 5438851, 204562019 (4) Patellar fracture ICD Codes: S82.009A - Unspecified fracture of unspecified patella, initial encounter for closed fracture SNOMED: 13247930 (5) Electrolyte imbalance ICD Codes: E87.8 - Other disorders of electrolyte and fluid balance, not elsewhere classified SNOMED: 554303994 Status: progressing Assessment/Plan: needs snf for pt/ot patellar fracture dc in am to snf for pt/ot Subjective ROS Limited/Unobtainable: Yes Allergies: Coded Allergies: No Known Allergies (Unverified , 06/03/13) Objective Last 24 Hour Vital Signs Date Time Temp Pulse Resp B/P (MAP) Pulse Ox O2 Delivery O2 Flow Rate FiO2 03/16/19 16:00 98.4 81 15 120/70 (87) 96 03/16/19 12:00 98.8 75 15 130/67 (88) 96 03/16/19 09:00 Room Air 03/16/19 08:00 98.1 82 16 114/68 (83) 95 03/16/19 04:19 97.8 74 18 127/74 (91) 97 03/16/19 03:59 97.8 03/16/19 00:15 97.8 78 18 128/75 (92) 97 Intake and Output 03/15/19 03/16/19 19:00 07:00 Intake Total 450 ml Balance 450 ml Intake Oral 450 ml # Voids 4 # Bowel Movements 1 Height (Feet): 5 Height (Inches): 9.00 Weight (Pounds): 149 Neck: supple Cardiovascular: normal rate Respiratory/Chest: lungs clear Kacy Borrego MD Mar 16, 2019 22:43
[2019-03-17] VITALS: BP 140/88
[2019-03-17] MEDS: HYDROcodone/Acetamin 10/325 tab ORAL PRN ×2 (03:20→07:58)
[2019-03-17 04:00] VITALS: BP 132/70
--- NOTE | 2019-03-17 07:10 | NUR ---
HAND-OFF: Report given to REBECCA Larson. Aware of discharge packet ready in chart.
--- NOTE | 2019-03-17 07:12 | NUR ---
NURSE NOTES: Received pt in bed, AAO x 4. Room air. No c/o of distress. c/o of pain on the L knee. IV on L FA 20g intact and patent, with saline lock. Knee immobilizer noted. Bedside commode noted. Bed in the lowest and locked. Call light within reach. Will continue to monitor
[2019-03-17 08:00] VITALS: BP 124/73
--- NOTE | 2019-03-17 08:14 | NUR ---
NURSE NOTES: Patient is discharged to [facility] via ambulance in stable condition. Report was given to REBECCA Child. ID and IV was removed. No s/s of infection on the removal site. Skin intact. Immobilizer on the L knee. Pain medication and lidocaine patch was given upon pt's request. Belongings were accounted for and given to ambulance personnel. Prescription and discharge instructions were given.
--- NOTE | 2019-03-17 22:08 | Discharge Summary ---
Discharge Summary Discharge Summary _ DATE OF ADMISSION: 03/13/2019 DATE OF DISCHARGE: 03/17/2019 DISCHARGED BY: REASON FOR ADMISSION: 79 years old female with past medical history of osteoarthritis, temporal arteritis, history of left hip replacement, presented to emergency department for evaluation of left knee pain and swelling. Patient sustained a fall earlier, prior to arrival to ED. Patient felt for work onto her right knee and struck the right cheek against the ground as well. No reported loss of consciousness. No seizure-like activity. Patient was not on any anticoagulation. Patient was helped home by a bystander. Patient reported worsening pain and swelling in the left knee. Patient took [place], which she had for chronic back pain, without significant improvement. Patient was unable to ambulate. Patient usually able to walk with a walker. Upon evaluation vital signs will were stable. X-ray of the left knee revealed patella fracture. CT of the head revealed no acute intracranial bleeding or mass-effect. Chronic and age-related changes noted. CT scan of facial bones revealed evidence of right molar region contusion. No acute bony fracture. Left maxillary sinus polyp or mucous retention cyst. X-ray of the right foot revealed no definite acute bony trauma. Laboratory work-up revealed no leukocytosis, hemoglobin 11.5, hematocrit 32.2, platelet count 201. Urinalysis revealed pyuria, many bacteria, positive nitrate and +3 leukocyte esterase. Patient subsequently admitted for left patellar fracture evaluation and further management. CONSULTANTS: ID specialist Dr. Belcher pheresis specialist Dr. Rivera orthopedic surgery Dr. Gates pain specialist Dr. Ring psychiatrist [facility] COURSE: Patient admitted to medical surgical floor. Orthopedic surgery seen and evaluated patient. After reviewing imaging, orthopedic surgeon diagnosed patient with left comminuted nondisplaced patellar fracture. Orthopedic surgery recommended knee immobilizer for 6 weeks. Patient will need to keep her leg straight. Patient cannot bend the leg. After 6 weeks she can begin flexion -extension activity with her knee. Orthopedic surgery recommended short-term rehabilitation facility. Repeat imaging in 10 to 14 days to make sure that the fracture not displaced. If the fracture displaced, she may require operative intervention in the future. If the fracture heals, she should have a functional recovery. Pain management was addressed as per pain specialist recommendation. DVT prophylaxis provided. Bowel regimen instituted. Blood pressure was closely monitored. Hydralazine was used for blood pressure spikes. GI prophylaxis provided. Urine culture revealed E. coli. Patient was on oral Bactrim as per ID specialist recommendation. Medical Claims Representative followed. Patient was hydrated. Urine toxicology screen was positive for opiates, benzodiazepines and marijuana. Patient started on thiamine. Renal parameters and electrolytes were closely monitored, electrolytes corrected as needed, and nephrotoxic's were avoided. Anemia work-up was consistent with anemia of chronic disease. ESR was 17 which was unusual for temporal arteritis. Psychiatrist followed. Per psychiatrist, patient had anxiety disorder and major depressive disorder. Psychiatric medication regimen was optimized. Patient was educated regarding pain medications. Supportive care provided. Patient clinically stabilized. Placement was found and secured at [facility]. Patient was stable for transfer. FINAL DIAGNOSES: Left comminuted nondisplaced patellar fracture. Status post fall Right foot pain E. coli UTI Osteoarthritis Osteoporosis Anxiety disorder Major depressive disorder Electrolyte imbalance Drug abuse/CBD and EtOH Temporal arteritis DISCHARGE MEDICATIONS: See Medication Reconciliation list. DISCHARGE INSTRUCTIONS: [] Patient was discharged to senior care facility. Follow-up with medical doctor at the facility. Repeat imaging in 10 to 14 days to ensure that fracture is nondisplaced. I have been assigned to dictate discharge summary for this account. I was not involved in the patient's management. Misti Lopez NP Mar 17, 2019 22:08
== END 2019-03-17 08:15 | DRG 563 ==
LOC: EDBD 01:00 → EMR 01:20 → 3E 02:16 → EDBEDREQ 04:40
DX: S82.045A Nondisplaced comminuted fracture of left patella, initial encounter for closed fracture (principal); E87.1 Hypo-osmolality and hyponatremia; N39.0 Urinary tract infection, site not specified; W19.XXXA Unspecified fall, initial encounter; E87.6 Hypokalemia; Z96.642 Presence of left artificial hip joint; M19.90 Unspecified osteoarthritis, unspecified site; G89.4 Chronic pain syndrome; S00.83XA Contusion of other part of head, initial encounter; D63.8 Anemia in other chronic diseases classified elsewhere; F41.9 Anxiety disorder, unspecified; F32.9 Major depressive disorder, single episode, unspecified; B96.20 Unspecified Escherichia coli [E. coli] as the cause of diseases classified elsewhere; M79.671 Pain in right foot; M81.0 Age-related osteoporosis without current pathological fracture; E87.8 Other disorders of electrolyte and fluid balance, not elsewhere classified; M31.6 Other giant cell arteritis; F10.10 Alcohol abuse, uncomplicated
CPT/HCPCS: 36415; 70450; 70486; 80048; 80053; 80061; 80307; 81001; 82607; 82728; 82746; 83540; 83550; 83735; 83880; 84100; 84443; 84550; 85025; 85651; 86140; 87086; 87181; 90471; 90715; 96372; 96374; 99285; J8499